=== PATIENT | male | born 1955 | race Caucasian/White ===

== ENCOUNTER → 2018-12-05 | Outpatient (CLI) | payer MEDICARE ==
[~2018-12-05] MED LIST: ASA-CA CARB-MA325 MG PO; ASPIR 8181 MG PO; PANTOPRAZOLE SO40 MG PO; PROPAFENONE HC225 MG PO; PROPAFENONE PO; Z.0.ATENOLOL25 MG PO; Z.0.PLAVIX75 MG PO; Z.0.PRAVACHOL40 MG PO; ZANTAC300 M1 PO
--- NOTE | 2018-12-05 15:05 | Diagnostic Imaging Report ---
CT BRAIN WO HISTORY: Fall COMPARISON: None. TECHNIQUE: Noncontrast axial scans were obtained from skull base to the vertex. Coronal and sagittal reconstructions obtained from the axial data. One or more of the following dose reduction techniques were used: Automated exposure control, adjustment of the mA and/or kV according to patient size, and/or utilization of iterative reconstruction technique. DISCUSSION: Scalp/Skull: Unremarkable. Brain sulci: Appropriate for patient's age. Ventricles: Normal in size and configuration. No hydrocephalus. Extra-axial spaces: No masses or fluid collections. Carotid siphon and vertebral artery calcifications are present. Parenchyma: Mild periventricular white matter hypodensities are likely chronic microvascular ischemic changes. Otherwise, no masses, hemorrhage, or large vascular territory acute infarct. Dural sinuses: No abnormal densities. Sellar/Suprasellar region: Intact. Skull base: Intact. Incidental findings: None. IMPRESSION: 1. No acute intracranial abnormalities. 2. Mild supratentorial chronic microvascular ischemic change. Signed by: Dr. Onesimo Mccoy M.D. on 12/05/2018 3:02 PM
== END ==
LOC: CT 14:02
PROVIDERS: ATTEND Family Medicine
DX: S00.83XA Contusion of other part of head, initial encounter (principal); W11.XXXA Fall on and from ladder, initial encounter
CPT/HCPCS: 70450

== ENCOUNTER → 2022-12-20 | Day surgery (SDC) | payer MEDICARE, OTHER ==
[~2022-12-20] MED LIST changes: +ELIQUIS5 MG PO; +FLONASE ALLERG9.9 ML INH; +LIDOCAINE HCL 2% LOCAL INJ 5 ML SDV VIAL INJ ONE; +LOSARTAN POTASS25 MG PO; +METOPROLOL SUCC50 MG PO; +PROPOFOL IV EMULSION 10 MG/ML 20 ML VIAL ONE; +PROPOFOL IV EMULSION 50 ML IV ONE; +VITAMIN B-121000 MCG PO; +ZOLOFT25 MG PO
[2022-12-20 12:28] VITALS: BP 110/60
== END | disposition home or self-care (01) ==
LOC: OR 08:11
PROVIDERS: ATTEND Internal Medicine Gastroenterology
DX: K20.90 Esophagitis, unspecified without bleeding (principal); D12.2 Benign neoplasm of ascending colon; K31.7 Polyp of stomach and duodenum; K29.70 Gastritis, unspecified, without bleeding; K44.9 Diaphragmatic hernia without obstruction or gangrene; K57.30 Diverticulosis of large intestine without perforation or abscess without bleeding; K21.9 Gastro-esophageal reflux disease without esophagitis; K64.8 Other hemorrhoids; Z71.3 Dietary counseling and surveillance; I25.810 Atherosclerosis of coronary artery bypass graft(s) without angina pectoris; I25.2 Old myocardial infarction; I10 Essential (primary) hypertension; E78.00 Pure hypercholesterolemia, unspecified; F41.9 Anxiety disorder, unspecified; Z79.02 Long term (current) use of antithrombotics/antiplatelets; Z79.82 Long term (current) use of aspirin; Z79.899 Other long term (current) drug therapy; Z68.29 Body mass index [BMI] 29.0-29.9, adult; Z95.1 Presence of aortocoronary bypass graft; Z95.810 Presence of automatic (implantable) cardiac defibrillator; Z95.5 Presence of coronary angioplasty implant and graft; Z80.0 Family history of malignant neoplasm of digestive organs
CPT/HCPCS: 43239; 43450; 45385; C9113; J2001; J2704 ×2